=== PATIENT | male | born 1990 | race Caucasian/White ===

== ENCOUNTER 2016-09-13 10:12 | Emergency (ER) | payer OTHER ==
--- NOTE | 2016-09-13 10:42 | EDM.PDOC ---
ED HPI GENERAL MEDICAL PROBLEM - General Chief Complaint: Burn Stated Complaint: BURN LEFT HAND Time Seen by Provider: 09/13/16 10:27 Source of Information: Reports: Patient History Limitations: Reports: No Limitations - History of Present Illness INITIAL COMMENTS - FREE TEXT/NARRATIVE: Presents reporting that he burned his left fourth finger about an hour prior to arrival on some sauce while working at a local [employer]. Blistered. Pain minimal. Last TD 2007. left ring finger Pain Score (Numeric/FACES): 5 - Related Data Allergies Allergy/AdvReac Type Severity Reaction Status Date / Time No Known Allergies Allergy Verified 09/13/16 10:14 Home Meds: Home Meds Silver Sulfadiazine [Silvadene 1% Cream 20 GM] 1 gm TOP BID #1 tube 09/13/16 [Rx ] Past Medical History - Past Health History Medical/Surgical History: Denies Medical/Surgical History Social & Family History - Family History Family Medical History: Noncontributory - Tobacco Use Smoking Status *Q: Current Every Day Smoker Years of Tobacco use: 5 Packs/Tins Daily: 1 - Recreational Drug Use Recreational Drug Use: No ED ROS GENERAL - Review of Systems Review Of Systems: ROS reveals no pertinent complaints other than HPI. ED EXAM, BURN/SMOKE INHALATION - Physical Exam Exam: See Below Exam Limited By: No Limitations General Appearance: Alert, No Apparent Distress Ears (Abbreviated): Normal External Exam Mouth/Throat: No Symptoms Reported Head: No Symptoms Neck: No Symptoms Respiratory: No Respiratory Distress Cardiovascular: Normal Peripheral Pulses GI/Abdominal: Soft Extremity Exam: Other (Left fourth finger blistering along the medial aspect longitudinally and small pea-sized blistering on the lateral tip. Listers are closed.) Neurological: Alert, Oriented Psychiatric: Normal Affect, Normal Mood Skin Exam: Warm, Dry, Intact, Normal Color, No Rash Lymphatic: No Adenopathy Course - Vital Signs Last Recorded V/S: Last Vital Signs Temp 36.7 C 09/13/16 10:24 Pulse 74 09/13/16 10:24 Resp 16 09/13/16 10:24 BP 137/89 09/13/16 10:24 Pulse Ox 98 09/13/16 10:24 Departure - Departure Time of Disposition: 10:42 Disposition: Home, Self-Care 01 Condition: Good Clinical Impression: Burn - Discharge Information Referrals: PCP,None [Primary Care Provider] - [facility] [Outside] [facility] [Outside] Forms: ED Department Discharge Additional Instructions: 1. Keep mejia clean and dry. 2. For work thin film of Silvadene cream with nonadherent dressing, 4 x 4 gauze and wear a glove. Otherwise may keep open to air. Do not remove blister roof. 3. Watch for signs of infection: Redness swelling or purulent drainage report promptly
== END 2016-09-13 11:05 | disposition home or self-care (01) ==
LOC: MW.ED 10:12
CPT/HCPCS: 16020; 99282; 99283